=== PATIENT | male | born 1940 | race Caucasian/White ===

== ENCOUNTER 2016-08-23 14:41 | Inpatient (IN) | payer MEDICARE, OTHER ==
--- NOTE | ~2016-08-23 | HP ---
History And Physical [address] [address] NAME: PATRICIA MILLER : 40 STATUS : ADM IN [facility]#: [id number] AGE: 76 ADM/REG DATE : 08/23/16 MR#: [id number] REPORT SERV DATE: 08/24/16 DICTATED BY: MEG MANSFIELD DATE: 08/23/16 REPORT STATUS : Draft TRANSCRIBED BY: MODAna Luisa DATE: 08/23/16 DATE OF ADMISSION: 08/23/2016 CHIEF COMPLAINT: This is a 76-year-old white male, triaged in the emergency room today, 08/23/2016 at 1440 hours, brought by family because of fall and weakness. His ER evaluation included a chest x-ray, which was positive for left lower lobe pneumonia. The Hospitalist Service was consulted, and the patient is now seen by the undersigned and admitted. The history is obtained from the patient's and from the patient's daughter. The patient is not able to give any historical information. 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 He fell into a tub. He had a head injury. He was taken to [place] and was evaluated in the emergency room and then admitted to the hospital for five days. According to the family, he had two CT scans and one MRI scan of his brain, and he did not have a stroke. He was found to be dehydrated and had a low potassium, and this was corrected by the time of discharge. Of note is that family said his status declined in the hospital where he was unable to sit, walk, talk, or respond as he had prior to his fall. Discussions were had then regarding rehab, but the family thought that if they could get him home and in his home environment, he might thrive. Of note, he did develop a cough in hospital. He was brought back to the hospital today because of a declining mental status and inability to sit, walk , talk, or respond. In addition, he has had a cough. There has not been any complaints of pain. No nausea or vomiting. No abdominal pain. No evident mucosal bleeding. SIGNIFICANT MEDICAL HISTORY: 1. Dementia for jrds-kxt-y-half years with behavioral disorder followed by Dr. Forrester, on Namenda, Exelon, and Seroquel. 2. Recent diagnosis of Parkinson disease, on Sinemet. 3. Type 2 diabetes, on Levemir and metformin. 4. Voiding dysfunction, on Flomax. 5. Hyperlipoproteinemia. There is no history of cancer, venous thromboembolic disease, COPD, or pulmonary fibrosis. There is no history of myocardial infarction or congestive heart failure. No previous history of stroke or seizure disorder. No previous rheumatologic diseases. PAST SURGICAL HISTORY: Lithotripsy for renal stones. ALLERGIES OR INTOLERANCE: Latex and morphine. HOME MEDICATIONS: Aspirin 81 mg daily, Sinemet 25/100 three times daily, vitamin D 50,000 units on Tuesdays, folic acid 1 mg daily, Levemir 30 units at bedtime, Namenda 10 mg twice daily, Fortamet 1000 mg twice daily, Centrum one tablet with lunch, Seroquel 50 mg at [address] [address] NAME: PATRICIA MILLER : 40 STATUS : ADM IN [facility]#: [id number] AGE: 76 ADM/REG DATE : 08/23/16 MR#: [id number] REPORT SERV DATE: 08/24/16 DICTATED BY: MEG MANSFIELD DATE: 08/23/16 REPORT STATUS : Draft TRANSCRIBED BY: MODL DATE: 08/23/16 bedtime, Exelon 6 mg twice daily, Crestor 20 mg at bedtime, Flomax 0.4 mg with lunch. 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 Until his fall, he was active. He was walking. and patient would visit children and grandchildren. No tobacco or alcohol use. Three healthy children. FAMILY HISTORY: No dementia. Positive for cancer and heart disease. REVIEW OF SYSTEMS: Cannot be obtained from the patient. Only other notable symptom from family is weight loss. PHYSICAL EXAMINATION: VITAL SIGNS: Admission blood pressure of 129/84, temperature 98.5, pulse 84, respirations 22, O2 saturation 97%. GENERAL: This is a stated age appearing acutely on chronically ill white male, examined in room 12. He is awake, but minimally interactive. He is basically nonverbal. SKIN: Warm and dry. No rash, petechiae, or ecchymoses. NODES: No palpable axillary, cervical or inguinal. HEENT: Atraumatic with symmetric facies. Lids, sclerae, and conjunctivae negative. No xanthelasma, scleral icterus, or conjunctival petechiae or injection. Pupils are equal, round, and reactive to light. Unable to test for extraocular movements. Hearing intact. Right ear negative. Right ear canal ceruminous, cannot see TM. Left ear negative, left ear canal and TM normal. Nose, negative. Anterior nares, clear. Lips, gums, mucosa, hard and soft palates, posterior pharynx, and tongue remarkable for dry mucous membranes. NECK: Supple. No visible JVD or asymmetry. No palpable mass, goiter, or tenderness. Trachea midline. Nontender. CHEST: No deformities. Breasts, no gynecomastia. No tenderness to palpation of chest. LUNGS: Diminished breath sounds bilaterally. No audible adventitious sounds. Normal respiratory effort. HEART: PMI not palpable. Regular rate and rhythm. No audible murmur, gallop, rub, or click. Pulses 2+ and symmetric radial, carotid, femoral, and dorsalis pedis. ABDOMEN: Scaphoid. Bowel sounds present. Soft to palpation. Cannot feel liver, spleen, kidneys, or definite increased aortic pulsation. : Normal penis. Chambers catheter in place with clear yellow urine. Scrotum, no palpable masses. Testicles, not enlarged. BACK: No visible abnormalities. Extremities x4, diminished muscle mass, diminished fat mass. No synovitis, clubbing, or edema. NEUROLOGIC: Mental status, see above. Cranial nerves grossly normal. Deep tendon reflexes symmetric, brachioradialis, knee jerk and ankle jerk with downgoing toes. Motor, minimal movement of extremities. PSYCHIATRIC: Unable to evaluate. DATA: Sodium 143, potassium 4.4, chloride 107, CO2 of 18, BUN 25, creatinine 1.05, glucose 324, calcium 9.4. Total protein 6.6, albumin 3, globulin 3.6. Total bilirubin 0.6, alkaline phosphatase 73, ALT 50, AST 24. Ammonia is 20. White count 15.2, hemoglobin 14.5, platelets 194,000. Urinalysis positive for protein, ketones, 4 rbc, 1 wbc per high-power field. History And Physical [address] [address] NAME: PATRICIA MILLER : 40 STATUS : ADM IN [facility]#: [id number] AGE: 76 ADM/REG DATE : 08/23/16 MR#: [id number] REPORT SERV DATE: 08/24/16 DICTATED BY: MEG MANSFIELD DATE: 08/23/16 REPORT STATUS : Draft TRANSCRIBED BY: MODL DATE: 08/23/16 CT brain, diffuse cerebral involutional changes. Chronic microvascular ischemic changes. No acute hemorrhage or other acute intracranial pathology identified. Chest x-ray reviewed, left lower lobe infiltrate. EKG sinus rhythm. Nonspecific ST-segment changes. ASSESSMENT: This is a 76-year-old white male with: 1. Left lower lobe pneumonia, healthcare-associated pneumonia, probably aspiration. 2. Suspect oropharyngeal dysphagia. 3. Fall, on 08/17/2016, with subsequent functional decline. 4. Dementia. 5. Parkinson disease. 6. Uncontrolled diabetes with positive anion gap. 7. Voiding dysfunction. 8. Hyperlipidemia. 9. Abnormal EKG. 10.Weight loss. PLAN: Check additional laboratory studies to further evaluate presentation including blood gases, LDH, hemoglobin A1c, lactate, troponin, BNP, procalcitonin, urinary strep and Legionella antigens, and serum acetone. Give healthcare-associated pneumonia antimicrobial therapy with cefepime and vancomycin with pharmacy assistance in dosing. Crystalloid volume resuscitation with LR. Neurology consultation with Dr. Forrester for input on current status compared to baseline. Continue home medications except metformin at this time. Adjusting insulin if needed. Pending modified barium swallow study and speech therapy evaluation. Diet with nectar-thick liquids. PT/OT evaluation. DVT prophylaxis. Family would like full code. Destination post hospital will be SNF for rehab, discussed. Further diagnostic and therapeutic considerations pending above. History And Physical [address] [address] NAME: PATRICIA MILLER : 40 STATUS : ADM IN PAT#: [id number] AGE: 76 ADM/REG DATE : 08/23/16 MR#: [id number] REPORT SERV DATE: 08/24/16 DICTATED BY: MEG MANSFIELD DATE: 08/23/16 REPORT STATUS : Draft TRANSCRIBED BY: MODL DATE: 08/23/16 DD/MODL Meg Mansfield M.D. / [id number] CC: MD Miguel Robles M.D.
--- NOTE | ~2016-08-23 | CN ---
Consultation Report [facility] [address] [place]. [address] NAME: PATRICIA MILLER : 40 STATUS : ADM IN PAT#: [id number] AGE: 76 ADM/REG DATE : 08/23/16 MR#: [id number] REPORT SERV DATE: 08/24/16 DICTATED BY: DATE: REPORT STATUS : Draft TRANSCRIBED BY: MODL DATE: 08/24/16 NEUROLOGY CONSULTATION DATE OF CONSULTATION: 08/24/2016 REASON FOR CONSULT: Encephalopathy. HISTORY OF PRESENT ILLNESS: This is a 76-year-old male who presented to [facility] on 08/23/2016 secondary to patient almost in the comatose state with the patient being obtunded and stiff. The patient's family reports that patient has had recent fall on 08/17/2016, afterwards the patient was noted to have frequent falls, was noted to have deteriorating mental status to the point where the patient was obtunded, difficult to arouse, and was noted to be very stiff. The patient was brought to the emergency department where patient was diagnosed with pneumonia, started on antibiotic. Since the antibiotic initiation, the patient was noted to have more improved mental status with the patient being more alert. The patient today at some point was able to sing with grandchildren and was able to communicate with the family members with the patient apparently answer most questions appropriately which was improved from previous mental status. The patient's family reports the patient does have a history of memory difficulties with the patient diagnosed with Alzheimer's dementia, patient was noted to have memory difficulties especially with recent memory. The patient especially was noted at times to have delusional thought as well as agitation and behavior issue although no significant hallucination was reported. The patient recently was also diagnosed with Parkinson disease and was started on Sinemet. First, the patient sustained a fall on 08/17/2016. The patient fell backwards into the tub, possibly hitting his head. Also, no immediate loss consciousness episode resulted form that. The patient afterwards was noted to be drowsy and subsequently was transferred to [facility] for evaluation where the patient has had two CT scan as well as MRI of the brain performed without finding significant pathology or acute stroke. The patient was subsequently discharged and was noted to have more difficulty. As a result, the patient was brought back to the hospital for re-evaluation. No other changes in medication were noted. However, the patient was noted to have not been taking his Sinemet medication for the past week or so secondary to recent hospitalization as well as later obtundation state. The patient at home was not noted to have any recent fever, chill, nausea, vomiting, previous to the hospitalization. Prior to the hospitalization, no previous history of dysarthria or dysphagia was noted. The patient was previously noted to be able to ambulate. Also, the patient's ambulation status has deteriorated since recent fall. PAST MEDICAL HISTORY: The patient's past medical history is significant for Alzheimer's dementia as well as Parkinson disease on Sinemet, type 2 diabetes, and history of voiding dysfunction on Flomax. No significant worsening was reported by family members. No bowel difficulty was noted by family members. The patient was not noted to have any history of stroke or seizure. ALLERGIES: THE PATIENT WAS NOTED TO HAVE ALLERGY TO LASIX AND MORPHINE. Consultation Report [place] [id number] [facility] [place]. [address] NAME: PATRICIA MILLER : 40 STATUS : ADM IN [facility]#: [id number] AGE: 76 ADM/REG DATE : 08/23/16 MR#: [id number] REPORT SERV DATE: 08/24/16 DICTATED BY: DATE: REPORT STATUS : Draft TRANSCRIBED BY: MODL DATE: 08/24/16 HOME MEDICATIONS: Consist of aspirin, Sinemet, vitamin D, folic acid, Levemir, Namenda, metformin, multivitamin, Seroquel, Exelon, Crestor, and Flomax. SOCIAL HISTORY: Denies tobacco, alcohol, or recreational drug usage. FAMILY HISTORY: Significant for cancer and heart disease. REVIEW OF SYSTEMS: Unable to be obtained from the patient secondary to patient's current mental status. PHYSICAL EXAMINATION: VITAL SIGNS: At the time of evaluation, the patient was noted to have overnight vital signs with T-max of 99.7, heart rate of 66 to 105, respirations of 20 to 24, blood pressure of 95 to 185 over 50 to 85. GENERAL: The patient is well developed, well nourished, in no acute distress. CARDIOVASCULAR EXAMINATION: Regular rate and rhythm. No carotid bruits were otherwise auscultated. PULMONARY EXAMINATION: Clear to auscultation bilaterally. NEUROLOGICAL EXAMINATION: Generally, the patient is arousable, also difficulty to maintain aroused. The patient is oriented to self as well as person but not to place, year, or months. The patient does not follow simple and 2-step commands. Increased rigidity was noted in bilateral upper and lower extremity with some mild tremor observed. Grimace as well as withdrawal was noted to noxious stimulation in all four extremities. Deep tendon reflex was 3+ throughout. Gait and cerebellar examination was unable to be evaluated secondary to patient's current mental status. LABORATORY STUDIES: Demonstrated white blood cell count of 13.0, hemoglobin of 13.5, hematocrit of 42.1, platelet count of 193. Chemistry panel; sodium 145, potassium 3.5, chloride 112, bicarb of 12, BUN of 18, creatinine 0.42, glucose of 60, calcium of 8.6, magnesium 1.5. Serum TSH was 0.437. Urinalysis demonstrated negative leukocyte esterase, negative nitrite. CT scan of the brain was reviewed, generalized atrophy was seen. No acute process was noted. IMPRESSION: 1. Encephalopathy likely secondary to pneumonia and possibly have component of traumatic brain injury secondary to recent fall. Family does reports some improvement in mentation after antibiotic for pneumonia. We are recommending to restart patient's home p.o. dementia medication once the patient is able to tolerate p.o. diet. We are recommending swallow study secondary to concern for possible aspiration. 2. Gait abnormalities worse after recent falls. We will check MRI of the C-spine without contrast. PT, OT, orthostatic vitals when patient is more stable. Consultation Report [place] [id number] [facility] [place]. [address] NAME: PATRICIA MILLER : 40 STATUS : ADM IN [facility]#: [id number] AGE: 76 ADM/REG DATE : 08/23/16 MR#: [id number] REPORT SERV DATE: 08/24/16 DICTATED BY: DATE: REPORT STATUS : Draft TRANSCRIBED BY: MODL DATE: 08/24/16 3. Parkinson's disease. We are recommending restart Sinemet when patient is more alert and able to tolerate p.o. RECOMMENDATION: 1. MRI of the brain and C-spine without contrast. 2. PT/OT. 3. Restart Sinemet when patient is able to tolerate p.o. diet. 4. Speech therapy for swallow study. 5. Vitamin B12, folate, thiamine, and free T4 level. [facility]/MODL Bennie Chaidez MD / [id number] CC: MD Miguel Robles M.D.
--- NOTE | ~2016-08-23 | DS ---
Discharge Summary [facility] [address] [place]. [address] NAME: PATRICIA MILLER : 40 STATUS : DIS IN PAT#: [id number] AGE: 76 ADM/REG DATE : 08/23/16 MR#: [id number] REPORT SERV DATE: 08/31/16 DICTATED BY: MICHAEL ODOM DATE: 08/30/16 REPORT STATUS : Draft TRANSCRIBED BY: MODL DATE: 08/30/16 ADMISSION DATE: 08/23/2016 DISCHARGE DATE: 08/29/2016 REASON FOR ADMISSION: This is a 76-year-old male, who came in with chief complaint of fall and weakness. Apparently, the patient had had a fall on 08/17/2016. He fell into the bathtub and had a closed head injury. He was taken to [place] where he was admitted for five days. He had a series of CT scans and MRIs that were negative and he was discharged and took him home; however, when he got home, he was unable to sit up, walk, talk, respond, and inability to swallow. The patient was found to have left lower lobe infiltrate and thought to have probable aspiration pneumonia and suspected oropharyngeal dysphagia. Admitted with a functional decline since his recent hospitalization at [place]. DISCHARGE DIAGNOSES: 1. Aspiration pneumonia. 2. Dysphagia. 3. Dementia with acute encephalopathy. 4. Status post fall with closed head injury. 5. Diabetes type 2. 6. Parkinson disease. HOSPITAL COURSE: The patient was very lethargic and largely nonresponsive for the 1st part of his hospital stay. He finally was able to complete a swallowing study on the , which would show aspiration with thin and nectar thick consistencies. So they would recommend pureed diet with honey thick liquids. When I took over the patient on 08/26/2016, the patient was more awake and responsive. He was able to eat some that night and received his oral medications that evening. He took Seroquel, which he is on schedule for the first time in several days. Due to inability to swallow prior to that and the next morning, he was quite sedated and unable to eat or drink. The prior day, he had been started on sublingual carbidopa levodopa by Neurology and so he was able to receive his Parkinson's medications. He would end up receiving an MRI of the brain and C-spine that day which showed atrophy compatible with generalized atrophy and mid brain atrophy compatible with Parkinson's and MRI of C-spine which show spondylitic changes projecting in the left central and neuroforaminal canal at C6-C7. The following day, the patient began to awaken again after we held his nighttime Seroquel. He was able to take his p.o. medications. He was able to eat and drink and was able to stand up with PT. He sustained that success again on the and was felt to be stable for discharge. We arranged rehab for him at local alf facility and was discharged. DISCHARGE CONDITION: Stable. DISCHARGE MEDICATIONS: 1. Sinemet 25/100 one tab t.i.d. 2. Metformin 1000 mg b.i.d. 3. Seroquel 12.5 mg p.o. at bedtime. 4. Crestor 20 mg p.o. at bedtime. Discharge Summary [address] [address] NAME: PATRICIA MILLER : 40 STATUS : DIS IN PAT#: [id number] AGE: 76 ADM/REG DATE : 08/23/16 MR#: [id number] REPORT SERV DATE: 08/31/16 DICTATED BY: MICHAEL ODOM DATE: 08/30/16 REPORT STATUS : Draft TRANSCRIBED BY: RUBEN DATE: 08/30/16 5. Namenda 10 mg p.o. b.i.d. 6. Exelon 6 mg p.o. b.i.d. 7. Flomax 0.4 mg p.o. daily. 8. Folic acid 1 mg p.o. daily. 9. Vitamin D 50,000 units p.o. weekly. 10.Aspirin 81 mg p.o. daily. 11.Levemir 30 units at bedtime. 12.Multivitamin one tablet daily. DISCHARGE PLAN: The patient is discharged to rehab and follow up with primary care, Miguel Wise after rehab as well as Dr. Vera Forrester with Neurology after rehab. YENNY/RUBEN Michael Odom APN / [id number] CC: Sabina Minor M.D. Abdul M.W. Eletr, M.D.
--- NOTE | ~2016-08-23 | EEG ---
Electroencephalogram [facility] [address] [place]. [address] NAME: PATRICIA MILLER : 40 STATUS : ADM IN PAT#: [id number] AGE: 76 ADM/REG DATE : 08/23/16 MR#: [id number] REPORT SERV DATE: 08/25/16 DICTATED BY: DATE: REPORT STATUS : Draft TRANSCRIBED BY: MODL DATE: 08/25/16 CLINICAL INDICATIONS: Encephalopathy. DESCRIPTION: This EEG was performed using 10/20 electrode placement system. During the EEG study, generalized slowing was seen with predominant occipital rhythm of roughly 5 to 6 hertz. Photic stimulation was performed. No clear motor vehicle escort driver response was seen. Hyperventilation was not performed secondary to the patient's mental status and underlying medical conditions. The patient achieved drowsy as well as stage I and II sleep with appropriate sleep spindles and K-complexes. No focal abnormalities, seizure activity, or seizure discharge was otherwise noted. INTERPRETATION: This EEG study obtained during awake, drowsy as well as stage I and II sleep may be considered mildly abnormal secondary to presence of mild generalized slowing. Otherwise, no focal abnormalities, seizure activity, or seizure discharge was seen. Clinical correlation is recommended. [facility]/MODL Bennie Chaidez MD / [id number] CC: MD JOSE RAMON Robles RICHARD
[2016-08-23 15:34] LABS: BASOPHILS 0.2 %; BASOPHILS ABSOLUTE 0.03 10/3/uL (0.0-0.16); EOSINOPHILS 0.1 %; EOSINOPHILS ABSOLUTE 0.02 10/3/uL (0.0-0.53); ER CBC TAT 0 Hrs 08 Mins; HEMATOCRIT 43.7 % (40.0-51.0); HEMOGLOBIN 14.5 g/dL (13.6-17.8); IMMATURE GRANULOCYTES 0.5 %; IMMATURE GRANULOCYTES ABSOLUTE 0.07 10/3/uL (0.0-0.11); LYMPHOCYTES 7.3 %; MEAN CORPUS HGB CONC 33.2 g/dL (32.0-36.0); MEAN CORPUSCULAR HEMOGLOB 29.4 pg (26.0-34.0); MEAN CORPUSCULAR VOLUME 88.5 fL (80-100); MEAN PLATELET VOLUME 10.2 fL (9.2-13.0); MONOCYTES ABSOLUTE 1.21 10/3/uL (0.21-1.20); NEUTROPHILS 83.9 %; NEUTROPHILS ABSOLUTE 12.73 10/3/uL (2.02-8.40); PLATELET COUNT 194 10/3/uL (150-400); RBC DISTRIBUTION WIDTH 14.6 % (12.0-16.0); RED CELL COUNT 4.94 10/6/uL (4.7-6.1); WHITE BLOOD CELLS 15.2 10/3/uL (4.5-10.5)
[2016-08-23 15:35] LABS: MANUAL DIFF NO %
[2016-08-23 16:13] LABS: A/G RATIO 0.8 (0.7-1.9); ALKALINE PHOSPHATASE 73 U/L (45-117); BUN (BLOOD UREA NITROGEN) 25 MG/DL (6-23); CALCIUM, SERUM 9.4 MG/DL (8.5-10.4); CHLORIDE, SERUM 107 MMOL/L (96-112); CO2 (CARBON DIOXIDE) 18 MMOL/L (24-34); CREATININE 1.05 MG/DL (0.70-1.30); GFR AFRICAN AMERICAN 80 ML/MIN (>=60); GFR NON AFRICAN AMERICAN 69 ML/MIN (>=60); GLOBULIN 3.6 G/DL (2.5-4.1); GLUCOSE, SERUM 324 MG/DL (60-99); POTASSIUM, SERUM 4.4 MMOL/L (3.5-5.3); SGOT(AST) 24 U/L (5-40); SGPT(ALT) 50 U/L (5-65); SODIUM, SERUM 143 MMOL/L (135-148); TOTAL BILIRUBIN 0.6 MG/DL (0-1.2); TOTAL PROTEIN 6.6 G/DL (6.0-8.5)
[2016-08-23 16:21] LABS: ASCORBIC ACID (UR NOT ORDER) NEG (NEG); BILIRUBIN, URINE NEGATIVE (NEG); ER URINALYSIS TAT 0 Hrs 12 Mins; KETONE, URINE 80 MG/DL (NEG); LEUKOCYTE ESTERASE(NOT OR NEG (NEG); NITRITE (URINE) NEG (NEG); WBC (NOT ORDERED) (RFLEX) 1 (0-5)
[2016-08-23] MEDS ORDERED: SIN25 PO (17:24)
[2016-08-23] MEDS ORDERED: SEROQUEL50 MG PO (17:25)
[2016-08-23] MEDS ORDERED: FORTAMET1000 MG PO (17:25)
[2016-08-23] MEDS ORDERED: CRESTOR20 MG PO (17:25)
[2016-08-23] MEDS ORDERED: FLOMAX4 PO (17:26)
[2016-08-23] MEDS ORDERED: FOLIC PO (17:26)
[2016-08-23] MEDS ORDERED: NAMENDA10 MG PO (17:26)
[2016-08-23] MEDS ORDERED: EXELON3 PO (17:26)
[2016-08-23] MEDS ORDERED: VITD PO (17:27)
[2016-08-23] MEDS ORDERED: LEVEMFLXPN SC (17:28)
[2016-08-23] MEDS ORDERED: CENTRUM PO (17:28)
[2016-08-23] MEDS ORDERED: ASAB PO (17:28)
[2016-08-23 22:18] LABS: B NATRIURETIC PEPTIDE (BNP) 44.1 PG/ML (< 100.0)
[2016-08-23 23:24] LABS: TROPONIN I 0.02 NG/ML (<0.05)
[2016-08-23 23:37] LABS: ACETONE SMALL
[2016-08-24 00:07] LABS: PROCALCITONIN 0.38 ng/mL (<0.5)
[2016-08-24 07:03] LABS: BASOPHILS 0.4 %; BASOPHILS ABSOLUTE 0.05 10/3/uL (0.0-0.16); EOSINOPHILS 2.6 %; EOSINOPHILS ABSOLUTE 0.34 10/3/uL (0.0-0.53); HEMATOCRIT 42.1 % (40.0-51.0); HEMOGLOBIN 13.5 g/dL (13.6-17.8); IMMATURE GRANULOCYTES 0.5 %; IMMATURE GRANULOCYTES ABSOLUTE 0.06 10/3/uL (0.0-0.11); LYMPHOCYTES 7.6 %; LYMPHOCYTES ABSOLUTE 0.98 10/3/uL (0.67-4.30); MEAN CORPUS HGB CONC 32.1 g/dL (32.0-36.0); MEAN CORPUSCULAR HEMOGLOB 28.6 pg (26.0-34.0); MEAN CORPUSCULAR VOLUME 89.2 fL (80-100); MEAN PLATELET VOLUME 10.8 fL (9.2-13.0); MONOCYTES 13.2 %; MONOCYTES ABSOLUTE 1.71 10/3/uL (0.21-1.20); NEUTROPHILS 75.7 %; NEUTROPHILS ABSOLUTE 9.82 10/3/uL (2.02-8.40); PLATELET COUNT 193 10/3/uL (150-400); RBC DISTRIBUTION WIDTH 14.6 % (12.0-16.0); RED CELL COUNT 4.72 10/6/uL (4.7-6.1)
[2016-08-24 07:14] LABS: MANUAL DIFF NO %
[2016-08-24 09:04] LABS: CALCIUM, SERUM 8.6 MG/DL (8.5-10.4); CHLORIDE, SERUM 112 MMOL/L (96-112); CO2 (CARBON DIOXIDE) 21 MMOL/L (24-34); SODIUM, SERUM 145 MMOL/L (135-148)
[2016-08-24 09:05] LABS: CREATININE 0.42 MG/DL (0.70-1.30); GFR AFRICAN AMERICAN 131 ML/MIN (>=60); GFR NON AFRICAN AMERICAN 113 ML/MIN (>=60); GLUCOSE, SERUM 60 MG/DL (60-99); POTASSIUM, SERUM 3.5 MMOL/L (3.5-5.3)
[2016-08-24 09:12] LABS: BUN (BLOOD UREA NITROGEN) 18 MG/DL (6-23)
[2016-08-24 09:25] LABS: TROPONIN I 0.03 NG/ML (<0.05); ULTRASENSITIVE TSH 0.437 MCIU/ML (0.358-3.740)
[2016-08-24 14:15] LABS: ALLENS TEST Pos; BE (BASE EXCESS) -4.3 MEQ/L (0 +/- 2.5); CARBOXYHEMOGLOBIN 1.3 % (0-3); HCO3 (ACTUAL BICARBONATE) 18.7 MEQ/L (23-27); HEMOBLOGIN CONTENT 14.5 G/DL (14-18); INSTRUMENT SERIAL # 8087; METHEMOGLOBIN 0.3 % (0-3); O2 CONTENT 18.7 VOL% (18-24); PCO2 (CO2 TENSION) 30 MMHG (35-45); PO2 (O2 TENSION) 67 MMHG (79-93); SAMPLE Arterial; pH 7.42 (7.37-7.43)
[2016-08-24 20:30] LABS: GLYCOHEMOGLOBIN (HbA1c) 7.2 % (4.7-6.1)
[2016-08-25 06:21] LABS: BASOPHILS 0.5 %; BASOPHILS ABSOLUTE 0.05 10/3/uL (0.0-0.16); EOSINOPHILS 8.8 %; EOSINOPHILS ABSOLUTE 0.94 10/3/uL (0.0-0.53); HEMATOCRIT 38.7 % (40.0-51.0); HEMOGLOBIN 12.5 g/dL (13.6-17.8); IMMATURE GRANULOCYTES 0.5 %; IMMATURE GRANULOCYTES ABSOLUTE 0.05 10/3/uL (0.0-0.11); LYMPHOCYTES 10.2 %; LYMPHOCYTES ABSOLUTE 1.09 10/3/uL (0.67-4.30); MEAN CORPUS HGB CONC 32.3 g/dL (32.0-36.0); MEAN CORPUSCULAR HEMOGLOB 28.9 pg (26.0-34.0); MEAN CORPUSCULAR VOLUME 89.4 fL (80-100); MEAN PLATELET VOLUME 10.5 fL (9.2-13.0); MONOCYTES 12.1 %; MONOCYTES ABSOLUTE 1.29 10/3/uL (0.21-1.20); NEUTROPHILS 67.9 %; NEUTROPHILS ABSOLUTE 7.25 10/3/uL (2.02-8.40); PLATELET COUNT 212 10/3/uL (150-400); RBC DISTRIBUTION WIDTH 14.6 % (12.0-16.0); RED CELL COUNT 4.33 10/6/uL (4.7-6.1); WHITE BLOOD CELLS 10.7 10/3/uL (4.5-10.5)
[2016-08-25 06:29] LABS: MANUAL DIFF NO %
[2016-08-25 08:09] LABS: BUN (BLOOD UREA NITROGEN) 21 MG/DL (6-23); CHLORIDE, SERUM 113 MMOL/L (96-112); CREATININE 0.63 MG/DL (0.70-1.30); FREE T4 1.46 NG/DL (0.76-1.46); GFR AFRICAN AMERICAN 111 ML/MIN (>=60); GFR NON AFRICAN AMERICAN 96 ML/MIN (>=60); GLUCOSE, SERUM 72 MG/DL (60-99); POTASSIUM, SERUM 3.1 MMOL/L (3.5-5.3); SODIUM, SERUM 148 MMOL/L (135-148); TROPONIN I 0.02 NG/ML (<0.05)
[2016-08-25 08:11] LABS: CO2 (CARBON DIOXIDE) 27 MMOL/L (24-34); FOLATE 28.9 NG/ML (>5.2)
[2016-08-26 08:35] LABS: BASOPHILS 0.4 %; BASOPHILS ABSOLUTE 0.04 10/3/uL (0.0-0.16); EOSINOPHILS 6.1 %; EOSINOPHILS ABSOLUTE 0.61 10/3/uL (0.0-0.53); HEMATOCRIT 42.1 % (40.0-51.0); HEMOGLOBIN 13.8 g/dL (13.6-17.8); IMMATURE GRANULOCYTES 0.6 %; IMMATURE GRANULOCYTES ABSOLUTE 0.06 10/3/uL (0.0-0.11); LYMPHOCYTES ABSOLUTE 1.19 10/3/uL (0.67-4.30); MEAN CORPUS HGB CONC 32.8 g/dL (32.0-36.0); MEAN CORPUSCULAR HEMOGLOB 28.4 pg (26.0-34.0); MEAN PLATELET VOLUME 10.3 fL (9.2-13.0); MONOCYTES 11.5 %; MONOCYTES ABSOLUTE 1.14 10/3/uL (0.21-1.20); NEUTROPHILS 69.4 %; NEUTROPHILS ABSOLUTE 6.88 10/3/uL (2.02-8.40); PLATELET COUNT 254 10/3/uL (150-400); RBC DISTRIBUTION WIDTH 14.1 % (12.0-16.0); RED CELL COUNT 4.86 10/6/uL (4.7-6.1); WHITE BLOOD CELLS 9.9 10/3/uL (4.5-10.5)
[2016-08-26 08:37] LABS: MANUAL DIFF NO %; MEAN CORPUSCULAR VOLUME 86.6 fL (80-100)
[2016-08-26 08:40] LABS: CALCIUM, SERUM 8.7 MG/DL (8.5-10.4); CO2 (CARBON DIOXIDE) 27 MMOL/L (24-34); CREATININE 0.65 MG/DL (0.70-1.30); GFR AFRICAN AMERICAN 110 ML/MIN (>=60); GFR NON AFRICAN AMERICAN 95 ML/MIN (>=60)
[2016-08-26 08:41] LABS: BUN (BLOOD UREA NITROGEN) 10 MG/DL (6-23); CHLORIDE, SERUM 100 MMOL/L (96-112); GLUCOSE, SERUM 243 MG/DL (60-99); SODIUM, SERUM 141 MMOL/L (135-148)
[2016-08-26 18:09] LABS: C-REACTIVE PROTEIN 34.4 MG/L (<8.0); CHOL/HDL RATIO(NOT ORDER) 3.7 (0-5); DIRECT BILIRUBIN 0.2 MG/DL (0.0-0.4); FOLATE 35.7 NG/ML (>5.2); INDIRECT BILIRUBIN(NOT ORDER) 0.4 MG/DL (0.1-0.9); TOTAL BILIRUBIN 0.6 MG/DL (0-1.2); TOTAL PROTEIN 6.9 G/DL (6.0-8.5)
[2016-08-26 22:21] LABS: GLYCOHEMOGLOBIN (HbA1c) 7.4 % (4.7-6.1)
[2016-08-27 07:13] LABS: BUN (BLOOD UREA NITROGEN) 9 MG/DL (6-23); CALCIUM, SERUM 8.9 MG/DL (8.5-10.4); CHLORIDE, SERUM 105 MMOL/L (96-112); CO2 (CARBON DIOXIDE) 27 MMOL/L (24-34); CREATININE 0.77 MG/DL (0.70-1.30); GFR AFRICAN AMERICAN 102 ML/MIN (>=60); GFR NON AFRICAN AMERICAN 88 ML/MIN (>=60); GLUCOSE, SERUM 242 MG/DL (60-99); POTASSIUM, SERUM 3.5 MMOL/L (3.5-5.3); SODIUM, SERUM 143 MMOL/L (135-148)
[2016-08-27 07:38] LABS: ASCORBIC ACID (UR NOT ORDER) NEG (NEG); BILIRUBIN, URINE NEGATIVE (NEG); KETONE, URINE TRACE MG/DL (NEG); LEUKOCYTE ESTERASE(NOT OR NEG (NEG); WBC (NOT ORDERED) (RFLEX) 2 (0-5)
[2016-08-27 09:07] LABS: ALLENS TEST Pos; BE (BASE EXCESS) 1.4 MEQ/L (0 +/- 2.5); CARBOXYHEMOGLOBIN 0.5 % (0-3); DEVICE NC; HCO3 (ACTUAL BICARBONATE) 25.5 MEQ/L (23-27); HEMOBLOGIN CONTENT 14.1 G/DL (14-18); INSTRUMENT SERIAL # 8083; METHEMOGLOBIN 0.1 % (0-3); OPERATOR ID 32214; PCO2 (CO2 TENSION) 39 MMHG (35-45); PO2 (O2 TENSION) 83 MMHG (79-93); SAMPLE Arterial; pH 7.44 (7.37-7.43)
[2016-08-27 10:29] LABS: PROCALCITONIN 0.05 ng/mL (<0.5)
[2016-08-28 05:49] LABS: BUN (BLOOD UREA NITROGEN) 6 MG/DL (6-23); CHLORIDE, SERUM 107 MMOL/L (96-112); CO2 (CARBON DIOXIDE) 28 MMOL/L (24-34); CREATININE 0.58 MG/DL (0.70-1.30); GFR AFRICAN AMERICAN 115 ML/MIN (>=60); GFR NON AFRICAN AMERICAN 99 ML/MIN (>=60); POTASSIUM, SERUM 3.1 MMOL/L (3.5-5.3); SODIUM, SERUM 143 MMOL/L (135-148)
[2016-08-28 05:53] LABS: GLUCOSE, SERUM 71 MG/DL (60-99)
[2016-08-28 06:01] LABS: BASOPHILS 0.5 %; BASOPHILS ABSOLUTE 0.06 10/3/uL (0.0-0.16); EOSINOPHILS 9.2 %; EOSINOPHILS ABSOLUTE 1.04 10/3/uL (0.0-0.53); HEMATOCRIT 41.1 % (40.0-51.0); HEMOGLOBIN 13.6 g/dL (13.6-17.8); IMMATURE GRANULOCYTES 1.6 %; IMMATURE GRANULOCYTES ABSOLUTE 0.18 10/3/uL (0.0-0.11); LYMPHOCYTES 13.9 %; LYMPHOCYTES ABSOLUTE 1.57 10/3/uL (0.67-4.30); MEAN CORPUS HGB CONC 33.1 g/dL (32.0-36.0); MEAN CORPUSCULAR HEMOGLOB 28.4 pg (26.0-34.0); MEAN CORPUSCULAR VOLUME 85.8 fL (80-100); MEAN PLATELET VOLUME 10.2 fL (9.2-13.0); MONOCYTES 4.3 %; MONOCYTES ABSOLUTE 0.48 10/3/uL (0.21-1.20); NEUTROPHILS 70.5 %; NEUTROPHILS ABSOLUTE 7.96 10/3/uL (2.02-8.40); PLATELET COUNT 263 10/3/uL (150-400); RBC DISTRIBUTION WIDTH 14.5 % (12.0-16.0); RED CELL COUNT 4.79 10/6/uL (4.7-6.1); WHITE BLOOD CELLS 11.3 10/3/uL (4.5-10.5)
[2016-08-28 06:13] LABS: MANUAL DIFF NO %
[2016-08-29 04:51] LABS: BUN (BLOOD UREA NITROGEN) 8 MG/DL (6-23); CALCIUM, SERUM 9.4 MG/DL (8.5-10.4); CHLORIDE, SERUM 102 MMOL/L (96-112); CREATININE 0.86 MG/DL (0.70-1.30); GFR AFRICAN AMERICAN 98 ML/MIN (>=60); GFR NON AFRICAN AMERICAN 84 ML/MIN (>=60); POTASSIUM, SERUM 3.2 MMOL/L (3.5-5.3); SODIUM, SERUM 144 MMOL/L (135-148)
[2016-08-29 05:00] LABS: CO2 (CARBON DIOXIDE) 33 MMOL/L (24-34); GLUCOSE, SERUM 122 MG/DL (60-99)
[2016-08-29 05:15] LABS: BASOPHILS 0.6 %; BASOPHILS ABSOLUTE 0.06 10/3/uL (0.0-0.16); EOSINOPHILS 8.8 %; EOSINOPHILS ABSOLUTE 0.92 10/3/uL (0.0-0.53); HEMOGLOBIN 14.8 g/dL (13.6-17.8); IMMATURE GRANULOCYTES 2.2 %; IMMATURE GRANULOCYTES ABSOLUTE 0.23 10/3/uL (0.0-0.11); LYMPHOCYTES 8.9 %; LYMPHOCYTES ABSOLUTE 0.93 10/3/uL (0.67-4.30); MEAN CORPUS HGB CONC 32.5 g/dL (32.0-36.0); MEAN CORPUSCULAR HEMOGLOB 29.1 pg (26.0-34.0); MEAN PLATELET VOLUME 10.5 fL (9.2-13.0); MONOCYTES 13.9 %; MONOCYTES ABSOLUTE 1.45 10/3/uL (0.21-1.20); NEUTROPHILS 65.6 %; NEUTROPHILS ABSOLUTE 6.82 10/3/uL (2.02-8.40); PLATELET COUNT 305 10/3/uL (150-400); RBC DISTRIBUTION WIDTH 14.1 % (12.0-16.0); RED CELL COUNT 5.09 10/6/uL (4.7-6.1); WHITE BLOOD CELLS 10.4 10/3/uL (4.5-10.5)
[2016-08-29 05:18] LABS: HEMATOCRIT 45.5 % (40.0-51.0)
[2016-08-29 05:19] LABS: MANUAL DIFF NO %; MEAN CORPUSCULAR VOLUME 89.4 fL (80-100)
== END 2016-08-29 16:10 | DRG 177 ==
LOC: ER 14:41 → 4SO 20:04
PROVIDERS: Internal Medicine; Nurse Practitioner; Nurse Practitioner Gerontology; Physician Assistant
DX: J69.0 Pneumonitis due to inhalation of food and vomit (principal); G93.49 Other encephalopathy; E87.0 Hyperosmolality and hypernatremia; G30.9 Alzheimer's disease, unspecified; F05 Delirium due to known physiological condition; R13.12 Dysphagia, oropharyngeal phase; I48.0 Paroxysmal atrial fibrillation; F02.81 Dementia in other diseases classified elsewhere, unspecified severity, with behavioral disturbance; E11.65 Type 2 diabetes mellitus with hyperglycemia; G20 Parkinson's disease; Z23 Encounter for immunization; R30.0 Dysuria; Z79.4 Long term (current) use of insulin; Z79.84 Long term (current) use of oral hypoglycemic drugs; E78.5 Hyperlipidemia, unspecified; Z88.5 Allergy status to narcotic agent; Z91.040 Latex allergy status; Z91.81 History of falling; Z79.82 Long term (current) use of aspirin; S06.9X0D Unspecified intracranial injury without loss of consciousness, subsequent encounter; W18.2XXD Fall in (into) shower or empty bathtub, subsequent encounter; E87.6 Hypokalemia; D64.9 Anemia, unspecified; R63.4 Abnormal weight loss; R31.9 Hematuria, unspecified; Z68.21 Body mass index [BMI] 21.0-21.9, adult
CPT/HCPCS: 36600; 70450; 70551; 71010; 72141; 74230; 80048; 80053; 80061; 80076; 80202; 81001; 82009; 82140; 82306; 82533; 82607; 82746; 82805; 82962; 83036; 83605; 83615; 83735; 83880; 84132; 84145; 84425; 84439; 84443; 84484; 85025; 85652; 86140; 90662; 92610-GN; 92611-GN; 93005; 94640; 95819; 97110-GO; 97110-GP; 97162-GP; 97166-GO; 97530-GP; 99285; A9270-GY; C8929; G0008; G8978-CL-GP; G8979-CK-GP; G8987-CL-GO; G8988-CK-GO; G8996-CK-GN; G8996-CN-GN; G8997-CK-GN; G8997-CN-GN; G8998-CK-GN; G8998-CN-GN; J0360; J0456; J0692; J2550; J3370; J3411; Q9957

== ENCOUNTER 2016-11-21 11:01 | Emergency (ER) | payer MEDICARE, OTHER ==
[2016-11-21 10:23] LABS: ASCORBIC ACID (UR NOT ORDER) NEG (NEG); BILIRUBIN, URINE NEGATIVE (NEG); ER URINALYSIS TAT 0 Hrs 07 Mins; KETONE, URINE NEGATIVE (NEG); LEUKOCYTE ESTERASE(NOT OR NEG (NEG); NITRITE (URINE) NEG (NEG); WBC (NOT ORDERED) (RFLEX) < 1 (0-5)
[2016-11-21 10:24] LABS: BASOPHILS 0.5 %; BASOPHILS ABSOLUTE 0.04 10/3/uL (0.0-0.16); EOSINOPHILS 7.8 %; EOSINOPHILS ABSOLUTE 0.62 10/3/uL (0.0-0.53); ER CBC TAT 0 Hrs 08 Mins; HEMATOCRIT 44.6 % (40.0-51.0); HEMOGLOBIN 14.5 g/dL (13.6-17.8); IMMATURE GRANULOCYTES 0.3 %; IMMATURE GRANULOCYTES ABSOLUTE 0.02 10/3/uL (0.0-0.11); LYMPHOCYTES 13.5 %; LYMPHOCYTES ABSOLUTE 1.07 10/3/uL (0.67-4.30); MANUAL DIFF NO %; MEAN CORPUS HGB CONC 32.5 g/dL (32.0-36.0); MEAN CORPUSCULAR HEMOGLOB 29.5 pg (26.0-34.0); MEAN CORPUSCULAR VOLUME 90.7 fL (80-100); MEAN PLATELET VOLUME 10.4 fL (9.2-13.0); MONOCYTES 11.6 %; MONOCYTES ABSOLUTE 0.92 10/3/uL (0.21-1.20); NEUTROPHILS 66.3 %; NEUTROPHILS ABSOLUTE 5.28 10/3/uL (2.02-8.40); PLATELET COUNT 206 10/3/uL (150-400); RBC DISTRIBUTION WIDTH 15.1 % (12.0-16.0); RED CELL COUNT 4.92 10/6/uL (4.7-6.1)
[2016-11-21 10:32] LABS: INTERNATIONAL NORMAL RATI 1.1 UNITS (-); PARTIAL THROMBO TIME 28.3 SEC (22.5-37.2); PROTIME (NOT ORD) 14.3 SEC (12.0-14.5)
[2016-11-21 10:43] LABS: CALCIUM, SERUM 8.8 MG/DL (8.5-10.4); CHLORIDE, SERUM 109 MMOL/L (96-112); CREATININE 0.89 MG/DL (0.70-1.30); GFR AFRICAN AMERICAN 96 ML/MIN (>=60); GFR NON AFRICAN AMERICAN 83 ML/MIN (>=60); SGOT(AST) 16 U/L (5-40); SGPT(ALT) 22 U/L (5-65); SODIUM, SERUM 145 MMOL/L (135-148); TROPONIN I <0.02 NG/ML (<0.05)
[2016-11-21 10:44] LABS: A/G RATIO 1.4 (0.7-1.9); ALBUMIN 4.1 G/DL (3.5-5.0); ALKALINE PHOSPHATASE 70 U/L (45-117); BUN (BLOOD UREA NITROGEN) 15 MG/DL (6-23); CO2 (CARBON DIOXIDE) 32 MMOL/L (24-34); GLOBULIN 2.9 G/DL (2.5-4.1); GLUCOSE, SERUM 71 MG/DL (60-99); TOTAL BILIRUBIN 1.6 MG/DL (0-1.2)
[~2016-11-21 11:01] MED LIST: ASAB PO; CENTRUM PO; CRESTOR20 MG PO; EXELON3 PO; FLOMAX4 PO; FOLIC PO; FORTAMET1000 MG PO; LEVEMFLXPN SC; NAMENDA10 MG PO; SEROQUEL50 MG PO; SIN25 PO; VITD PO
== END 2016-11-21 14:14 | disposition home or self-care (01) ==
LOC: ER 11:01
PROVIDERS: Nurse Practitioner
DX: G20 Parkinson's disease (principal); F02.80 Dementia in other diseases classified elsewhere, unspecified severity, without behavioral disturbance, psychotic disturbance, mood disturbance, and anxiety; E87.6 Hypokalemia; R45.1 Restlessness and agitation; E11.9 Type 2 diabetes mellitus without complications; Z88.5 Allergy status to narcotic agent; Z79.84 Long term (current) use of oral hypoglycemic drugs; Z79.82 Long term (current) use of aspirin; Z79.899 Other long term (current) drug therapy; Z79.4 Long term (current) use of insulin
CPT/HCPCS: 70450; 71010; 80053; 81001; 82140; 84484; 85025; 85610; 85730; 93005; 96365; 96375; 99285

== ENCOUNTER 2016-11-28 17:23 | Inpatient (IN) | payer MEDICARE, OTHER ==
--- NOTE | ~2016-11-28 | DS ---
Discharge Summary [facility] [address] [place]. [address] NAME: PATRICIA MILLER : 40 STATUS : DIS IN PAT#: [id number] AGE: 76 ADM/REG DATE : 11/28/16 MR#: [id number] REPORT SERV DATE: 12/04/16 DICTATED BY: MICHAEL ODOM DATE: 12/03/16 REPORT STATUS : Draft TRANSCRIBED BY: MODL DATE: 12/03/16 ADMISSION DATE: 11/28/2016 DISCHARGE DATE: 12/03/2016 REASON FOR ADMISSION: This is a 76-year-old male with a history of Parkinson's and Alzheimer's progressive dementia who came in with encephalopathy and sedation. The patient had recently been increased on his Seroquel from 50 mg to 100 mg daily. DISCHARGE DIAGNOSES: 1. Severe senile dementia with altered mental status and sedation secondary to medications. 2. Parkinson's. 3. Diabetes type 2, A1c 7.1%. 4. Hypertension. 5. Moderate dysphagia. 6. Hypokalemia. HOSPITAL COURSE: Severe senile dementia with altered mental status and sedation. The patient had recently had his Seroquel increased from 50 to 100 mg and had become severely sedated and borderline unresponsive after the dosage change. His dosage was cut back to 25 mg a day here at the hospital and over several days, the patient did have improvement with his mental status with the dosage changes. On admission, the patient had a MRI of the brain, which showed no acute intracranial abnormality seen and also had a CT of the brain which showed stable cerebral atrophy, no acute intracranial process identified. Also, chest x-ray was clear. The patient's white blood cell count was mildly elevated at 11.9, but procalcitonin was only 0.07. The patient did not have any fevers and his urinalysis did not reveal any evidence of a UTI. Again, the patient's symptoms improved with Seroquel dosage change. Moderate dysphagia. There were concerns about patient's swallowing. The patient had a modified barium swallow study which revealed moderate dysphagia with recommendations for mechanical soft diet, ground meats with gravy, nectar thick liquids, and esophageal stimulation at shelter rehab. DISCHARGE CONDITION: Stable. DISCHARGE MEDICATION: 1. Crestor 20 mg p.o. at bedtime. 2. Folic acid 1 mg p.o. daily. 3. Aspirin 81 mg p.o. daily. 4. Potassium chloride 20 mEq p.o. b.i.d. 5. Metformin 1000 mg p.o. b.i.d. 6. Flomax 0.4 mg p.o. daily. 7. Sinemet 25/100, one tab t.i.d. 8. Namenda 10 mg p.o. b.i.d. 9. Exelon 6 mg p.o. b.i.d. 10.Vitamin D 50,000 units p.o. weekly. Discharge Summary [address] [place]. [address] NAME: PATRICIA MILLER : 40 STATUS : DIS IN PAT#: [id number] AGE: 76 ADM/REG DATE : 11/28/16 MR#: [id number] REPORT SERV DATE: 12/04/16 DICTATED BY: MICHAEL ODOM DATE: 12/03/16 REPORT STATUS : Draft TRANSCRIBED BY: RUBEN DATE: 12/03/16 11.Ativan 0.5-1 mg b.i.d. p.r.n. 12.Levemir 30 units subcu at bedtime. 13.Seroquel 25 mg p.o. at bedtime. 14.Multivitamin one tablet daily. 15.Lisinopril 5 mg p.o. daily. DISCHARGE PLAN: Patient had PT evaluation which revealed his need for shelter rehab. He is arranged for that to [facility] and patient is scheduled to discharge there today. After rehab, the patient will follow up with primary care, Miguel Wise and his neurologist. DICTATED BY: SAVANNHA Phelan/RUBEN Michael Odom APN / [id number] CC: Sabina Minor M.D.
--- NOTE | ~2016-11-28 | CN ---
Consultation Report [facility] [address] [place]. [address] NAME: PATRICIA MILLER : 40 STATUS : ADM IN PAT#: [id number] AGE: 76 ADM/REG DATE : 11/28/16 MR#: [id number] REPORT SERV DATE: 11/29/16 DICTATED BY: DATE: REPORT STATUS : Draft TRANSCRIBED BY: MODL DATE: 11/29/16 NEUROLOGY CONSULTATION DATE OF CONSULTATION: 11/29/2016 REASON FOR CONSULT: Encephalopathy. HISTORY OF PRESENT ILLNESS: This is a 76-year-old male who presented to [facility] on 11/28/2016, secondary to about 1 week duration of encephalopathy with the patient noted to have 1 week duration of difficulty arousal as well as increased appetite and decreased activity. The patient, about 10 days ago, was noted to have adjustment of Seroquel with increased dosage to 250 mg p.o. at bedtime. The patient, about 7 days ago, was noted to be encephalopathic, difficulty to arouse as well as noted to have decreased p.o. intake. The patient, roughly two to three days prior to hospital admission, was noted to be sunken in the bed and slipped out of the bed. Family was unable to get him back into the bed. As a result, the family allowed the patient to be sleeping on the floor. The patient was noted to have minimal ambulatory activities during that period. The patient's son otherwise reports that since the hospital admission, roughly July 2016, the patient has been at rehab and has been doing relatively well with stable mentation, and the patient is able to ambulate short distances. The patient, however, seems to be doing worse over the past week and no recent fever, chills, nausea, vomiting, chest pain, or shortness of breath, was otherwise noted or reported by the patient. The patient's son denies any other changes in medication other than Seroquel. The patient's Seroquel has been discontinued by the patient's primary care physician secondary to patient's encephalopathy without significant improvement of the patient's mental status. The patient's son otherwise denies any recent worsening of weakness or any other noticeable focal complaints. The patient was diagnosed with dementia roughly 6 to 7 years ago and was noted to have fairly stable mentation until roughly June or July of 2016, for which the patient was initially presented to [place] for evaluation and subsequently presented to [facility] for re-evaluation. At that time, the patient was noted to have pneumonia. After pneumonia treatment, the patient was noted to have re-improvement of mental status and subsequently discharged to rehab for which the patient's mental status has been stable since until about a week ago. The patient was recently diagnosed with Parkinson's disease around June 2016 and then subsequently placed on Sinemet during the hospital admission in July 2016. No other changes in medication was otherwise reported. PAST MEDICAL HISTORY: Significant for history of dementia, Parkinson's disease, type 2 diabetes, as well as urinary dysfunction. SOCIAL HISTORY: Denies current tobacco, alcohol, or recreational drug usage. ALLERGIES: THE PATIENT WAS NOTED TO HAVE ALLERGY TO MORPHINE. HOME MEDICATIONS: Consist of aspirin, Sinemet, vitamin D, folic acid, Levemir, Ativan, Consultation Report [facility] [address] [place]. [address] NAME: PATRICIA MILLER : 40 STATUS : ADM IN [facility]#: [id number] AGE: 76 ADM/REG DATE : 11/28/16 MR#: [id number] REPORT SERV DATE: 11/29/16 DICTATED BY: DATE: REPORT STATUS : Draft TRANSCRIBED BY: MODL DATE: 11/29/16 Flomax, Crestor, Exelon, Seroquel which the patient has not been taking for the past couple of days; potassium; multivitamin; metformin; and Namenda. FAMILY HISTORY: Significant for cancer as well as heart disease. REVIEW OF SYSTEMS: Unable to be obtained secondary to the patient's current mental status. PHYSICAL EXAMINATION: VITAL SIGNS: At the time of evaluation, the patient was noted to have vital signs with T- max of 99.1, heart rate of 71 to 77, respirations of 14 to 20, and blood pressure of 140 to 194 over 64 to 84. GENERAL: The patient is well developed, well nourished, in no acute distress. CARDIOVASCULAR: Examination is regular rate and rhythm. No carotid bruits were otherwise auscultated. PULMONARY: Examination was clear to auscultation bilaterally. NEUROLOGICAL EXAMINATION: Generally the patient is obtunded, difficult to arouse, unable to maintain arousal. The patient was noted to have minimal verbalization and does not follow commands. Cranial nerves II through XII, pupil was difficult to assess as the patient was resisting eye opening, but otherwise appeared to be reactive horizontal eye movement was noted with the patient demonstrated [id number] response. Facial expression appeared to be symmetric. The patient does demonstrate increased muscle tones in bilateral upper extremities and trace myoclonic jerk was noted at time of evaluation, more pronounced in the left upper extremity, not appear sporadically, otherwise mild resting tremor was also seen in bilateral upper extremity, most pronounced in the left upper extremities and the patient does demonstrate grimace as well as trace withdrawal to noxious stimulation in all four extremities. Deep tendon reflex was hyperreflexic throughout. Cerebellar examination and gait was unable to be obtained secondary to the patient's current mental status. LABORATORY STUDIES: Demonstrated white blood cell count of 10.4, hemoglobin of 13.9, hematocrit of 42.4, and platelet count of 216. Chemistry panel: Sodium 142, potassium 3.7, chloride of 107, bicarb 27, BUN of 19, creatinine of 0.94, glucose of 196, calcium of 9.0, and magnesium 1.9. The patient noted to have serum ammonia level of less than 10, folate of 53.2, vitamin B12 of 453. TSH of 0.753, free T4 of 1.28, hemoglobin A1c of 7.1. Urine drug screen is otherwise negative with urinalysis demonstrated negative leukocyte esterase, negative nitrite. The patient was noted to have CT scan of the brain demonstrated no acute process with MRI of the brain demonstrated mild generalized atrophy but otherwise no acute process was seen. IMPRESSION: Encephalopathy. The patient on examination was noted to be obtunded, difficult to arouse, not following commands. The patient was also noted to have trace myoclonus in bilateral upper extremities, left greater than right as well as trace resting tremor, increased muscle rigidity. The patient does have a history of dementia for the past 6 to 7 years, appeared to be in steady course until July 2016, given known outstanding history of dementia, I feel less likely to be prion disease. We will check laboratory study. We Consultation Report [place] [id number] [facility] [place]. [address] NAME: PATRICIA MILLER : 40 STATUS : ADM IN PAT#: [id number] AGE: 76 ADM/REG DATE : 11/28/16 MR#: [id number] REPORT SERV DATE: 11/29/16 DICTATED BY: DATE: REPORT STATUS : Draft TRANSCRIBED BY: RUBEN DATE: 11/29/16 will be recommending to continue to hold Seroquel. Also discussed with the family regarding possible lumbar puncture. RECOMMENDATION: 1. Sedimentation rate, CRP, STIVEN, rheumatoid factor, procalcitonin level, thyroid antibodies with morning labs. 2. Discussed with the family members regarding possible lumbar puncture. 3. Continue to hold Seroquel. [facility]/MODL Bennie Chaidez MD / [id number] CC: Sabina Marie M.D.
--- NOTE | ~2016-11-28 | HP ---
History And Physical [place] [id number] [place]. [address] NAME: PATRICIA MILLER : 40 STATUS : ADM IN PAT#: [id number] AGE: 76 ADM/REG DATE : 11/28/16 MR#: [id number] REPORT SERV DATE: 11/29/16 DICTATED BY: FRANCHESCA ZABALA DATE: 11/28/16 REPORT STATUS : Draft TRANSCRIBED BY: MODL DATE: 11/28/16 DATE OF ADMISSION: 11/28/2016 Encephalopathy and unresponsiveness, progressive dementia. 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 He was treated for aspiration pneumonia and dementia with acute encephalopathy. He went to rehab where he spent 23 days. After that, he has been discharged home, and after discharge home, he reached his baseline which is pretty much confusion and periods of agitation that has been managed by Dr. Forrester. More than one week ago, the patient started again to experience periods of agitation and as a result, the patient's family called Dr. Forrester, who increased his Seroquel from 50 mg at bedtime to 100 mg at bedtime, according to the patient. He received Seroquel couple of days but he still has been extremely agitated, not sleeping. He has been brought to the emergency room. The family stopped his Seroquel. He recovered over the weekend last week and then he went to see his primary doctor who prescribed him some Ativan. They were giving him Ativan one dose, Ativan has been prescribed on since yesterday but mostly today he become more obtunded, largely very lethargic and unresponsive since this morning. Family says that this did happen the same during prior hospitalization. The patient has not been able to eat or drink over the last couple of days and since he has been extremely lethargic and largely unresponsive today they brought him to [facility]. The patient's family says that he did not complain of any chest pain or shortness of breath. He has not had any headaches, nausea, or vomiting. He has not had any falls recently but again due to the fact that he has significant deterioration of the mental status to the point that he became obtunded they brought him to [facility]. The patient has had significant according to the family progression of his dementia and recently, he has been diagnosed with Parkinson disease, and he has been started on Sinemet again. There were no reports at home for any fever, chills, nausea, vomiting, cough. No increased urinary frequency or urgency. No other complaints. The patient ambulatory status has been deteriorating recently due to his falls. After initial evaluation in the emergency room, Hospitalist Service has been asked for admission, further evaluation, and treatment. PAST MEDICAL HISTORY: Dementia, Parkinson disease, diabetes type 2, voiding dysfunction. PAST SURGICAL HISTORY: Include cataract surgery. SOCIAL HISTORY: Denies tobacco, alcohol, or IV drugs. ALLERGIES: HE IS ALLERGIC TO MORPHINE. MEDICATIONS: At home include aspirin, Sinemet, vitamin D, folic acid, Levemir, Ativan, Namenda, metformin, multivitamin, potassium, K-Dur, Seroquel, Exelon, Crestor, and Flomax. FAMILY HISTORY: Significant for cancer and heart disease. History And Physical [address] [address] NAME: PATRICIA MILLER : 40 STATUS : ADM IN [facility]#: [id number] AGE: 76 ADM/REG DATE : 11/28/16 MR#: [id number] REPORT SERV DATE: 11/29/16 DICTATED BY: FRANCHESCA ZABALA DATE: 11/28/16 REPORT STATUS : Draft TRANSCRIBED BY: RUBEN DATE: 11/28/16 REVIEW OF SYSTEMS: Review of systems has been unable to obtain due to the patient mental status. OBJECTIVE: VITAL SIGNS: Currently, the patient is afebrile. Blood pressure 140/74, heart rate 88, respiratory rate 10, saturating 99% on room air. GENERAL: He is a chronically ill-appearing gentleman, generally arousable though very difficult to maintain him aroused. He is alert and oriented x0. He does not follow any commands. There increased rigidity noted in the bilateral upper and lower extremities and tremor has been noted in all his extremities. Deep tendon reflexes are +2 throughout. Gait and cerebellar exam could not be appreciated. HEENT: Shows pupils equal, round, reactive to light. Dry mucosa membrane. NECK: No JVD. No lymphadenopathy. No thyromegaly appreciated. CHEST: Eval shows bilateral air entry. Clear anteroposterior. No wheezes, crackles, or rhonchi appreciated. CARDIOVASCULAR: Regular rate and rhythm. S1, S2 positive. No S3, no S4. No murmurs, rubs, or gallops appreciated. ABDOMEN: Soft with positive bowel sounds. Nontender. No guarding. No rebound. EXTREMITIES: No clubbing, cyanosis, or edema. NEUROLOGY: The patient is arousable but it is very difficult to arouse him. He is alert and oriented x0. He does not follow any commands. There is increased rigidity noted in bilateral upper and lower extremities. Gait and cerebellar examination could not be performed. LABORATORY DATA: Labs from today include ABG 7.46/29/. His sodium is 137, potassium 3.9, chloride 102, CO2 of 22, BUN 20, creatinine 1.27. Glucose is 341. His liver function tests showed total bilirubin 0.9, alkaline phosphatase 77, ALT 24, AST is 27. Serum drug level has been negative. His white count is 11.9, hemoglobin is 14.8, hematocrit 45.5, and platelets are 222. His INR is 1.1. His UA has been performed in the emergency room, it has been negative except for large blood. His UDS has been negative. His blood cultures are currently pending. There is a chest x-ray portable, performed in the emergency room, who does not show any acute cardiopulmonary abnormalities. Repeat CT scan of the brain without contrast has shown no acute intracranial abnormalities that could be appreciated. ASSESSMENT AND PLAN: This is a very pleasant 76-year-old gentleman with: 1. Encephalopathy in a patient with a history of progressive worsening dementia. 2. History of Parkinson disease. 3. Gait abnormalities with falls. 4. History of diabetes type 2, uncontrolled. 5. History of aspiration pneumonia with dysphagia. PLAN: 1. The patient is going to be admitted to Hospitalist Service. We are going to place him on oxygen, vigorous IV hydration. We are going to order an MRI of the brain, restart his home medications when able to swallow. We are going to restart the patient's p.o. History And Physical [address] [address] NAME: PATRICIA MILLER : 40 STATUS : ADM IN PAT#: [id number] AGE: 76 ADM/REG DATE : 11/28/16 MR#: [id number] REPORT SERV DATE: 11/29/16 DICTATED BY: FRANCHESCA ZABALA DATE: 11/28/16 REPORT STATUS : Draft TRANSCRIBED BY: RUBEN DATE: 11/28/16 dementia medication and Parkinson medications when he is able to tolerate p.o. and more awake. We are going to provide Geodon p.r.n. for severe agitation, and recommend a speech and swallow eval and treat when patient is more alert. We are going to consult Dr. Chaidez from Neurology Service for further recommendation. 2. Diabetes type 2, uncontrolled. While n.p.o. patient, we will check Accu-Cheks q.6 hours and sliding scale insulin subcutaneously level 2. We are going to check vitamin B12, folic acid, thiamine, TSH and a free T4. I have discussed extensively with the patient's who is power of college specialist, patient medical condition as well as our therapeutical goal. We have also discussed the patient's wishes in case his condition deteriorates, and she said she does not want any aggressive measures. She does not want any aggressive measures such as the intubation, chest compression, mechanical ventilation, defibrillation, cardioversion, or medication to treat life-threatening arrhythmia or hemodynamic deterioration according to patient's prior wishes well stated. We will honor patient and family wishes and make him do not resuscitate. Further workup and recommendation pending above. It is worthwhile to note that patient is going to be followed up by Hospitalist Service. [facility]/RUBEN Franchesca Zabala M.D. / [id number] CC: Sabina Marie M.D.
[2016-11-28 17:32] LABS: WBC (NOT ORDERED) (RFLEX) 0 (0-5)
[2016-11-28 17:35] LABS: BASOPHILS 0.2 %; BASOPHILS ABSOLUTE 0.02 10/3/uL (0.0-0.16); EOSINOPHILS 0.1 %; EOSINOPHILS ABSOLUTE 0.01 10/3/uL (0.0-0.53); HEMATOCRIT 45.5 % (40.0-51.0); HEMOGLOBIN 14.8 g/dL (13.6-17.8); IMMATURE GRANULOCYTES 0.3 %; IMMATURE GRANULOCYTES ABSOLUTE 0.04 10/3/uL (0.0-0.11); LYMPHOCYTES 6.2 %; LYMPHOCYTES ABSOLUTE 0.74 10/3/uL (0.67-4.30); MEAN CORPUS HGB CONC 32.5 g/dL (32.0-36.0); MEAN CORPUSCULAR HEMOGLOB 28.8 pg (26.0-34.0); MEAN CORPUSCULAR VOLUME 88.7 fL (80-100); MEAN PLATELET VOLUME 10.7 fL (9.2-13.0); MONOCYTES 8.5 %; MONOCYTES ABSOLUTE 1.01 10/3/uL (0.21-1.20); NEUTROPHILS 84.7 %; NEUTROPHILS ABSOLUTE 10.05 10/3/uL (2.02-8.40); PLATELET COUNT 222 10/3/uL (150-400); RBC DISTRIBUTION WIDTH 14.8 % (12.0-16.0); RED CELL COUNT 5.13 10/6/uL (4.7-6.1)
[2016-11-28 17:36] LABS: ER CBC TAT 0 Hrs 09 Mins; MANUAL DIFF NO %; WHITE BLOOD CELLS 11.9 10/3/uL (4.5-10.5)
[2016-11-28 17:48] LABS: ASCORBIC ACID (UR NOT ORDER) NEG (NEG); BILIRUBIN, URINE NEGATIVE (NEG); ER URINALYSIS TAT 0 Hrs 18 Mins; KETONE, URINE 80 MG/DL (NEG); LEUKOCYTE ESTERASE(NOT OR NEG (NEG); NITRITE (URINE) NEG (NEG)
[2016-11-28 17:57] LABS: A/G RATIO 1.1 (0.7-1.9); ACETAMINOPHEN LEVEL (TYLENOL) < 2.0 MCG/ML (10.0-20.0); ALBUMIN 3.7 G/DL (3.5-5.0); ALCOHOL < 10 MG/DL (0); ALKALINE PHOSPHATASE 77 U/L (45-117); BUN (BLOOD UREA NITROGEN) 20 MG/DL (6-23); CALCIUM, SERUM 9.3 MG/DL (8.5-10.4); CHLORIDE, SERUM 100 MMOL/L (96-112); CO2 (CARBON DIOXIDE) 22 MMOL/L (24-34); CREATININE 1.27 MG/DL (0.70-1.30); GFR AFRICAN AMERICAN 63 ML/MIN (>=60); GFR NON AFRICAN AMERICAN 55 ML/MIN (>=60); GLOBULIN 3.3 G/DL (2.5-4.1); GLUCOSE, SERUM 341 MG/DL (60-99); POTASSIUM, SERUM 3.9 MMOL/L (3.5-5.3); SALICYLATE < 1.7 MG/DL (-); SGOT(AST) 27 U/L (5-40); SGPT(ALT) 24 U/L (5-65); SODIUM, SERUM 137 MMOL/L (135-148); TOTAL BILIRUBIN 0.9 MG/DL (0-1.2)
[2016-11-28 18:59] LABS: AMPHETAMINES (NOT ORD) NEG (NEG); BARBITURATES (NOT ORDERED NEG (NEG); BENZODIAZEPINES (NOT ORD) NEG (NEG); CANNABINOIDS (THC) NEG (NEG); COCAINE (NOT ORDERED) NEG (NEG); OPIATES NEG (NEG); PHENCYCLIDINE(PCP) NEG (NEG); TRICYCLICS NEG (NEG)
[2016-11-28 19:36] LABS: ALLENS TEST Pos; BE (BASE EXCESS) -2.4 MEQ/L (0 +/- 2.5); CARBOXYHEMOGLOBIN 1.5 % (0-3); HCO3 (ACTUAL BICARBONATE) 20.1 MEQ/L (23-27); HEMOBLOGIN CONTENT 14.6 G/DL (14-18); INSTRUMENT SERIAL # 8087; METHEMOGLOBIN 0.3 % (0-3); O2 CONTENT 19.7 VOL% (18-24); OPERATOR ID 17589; PCO2 (CO2 TENSION) 29 MMHG (35-45); PO2 (O2 TENSION) 91 MMHG (79-93); SAMPLE Arterial; pH 7.46 (7.37-7.43)
[2016-11-28] MEDS ORDERED: CRESTOR20 MG PO (19:51)
[2016-11-28] MEDS ORDERED: FOLIC PO (19:51)
[2016-11-28] MEDS ORDERED: ASAB PO (19:51)
[2016-11-28] MEDS ORDERED: KDUR20 PO (19:52)
[2016-11-28] MEDS ORDERED: FORTAMET1000 MG PO (19:52)
[2016-11-28] MEDS ORDERED: NAMENDA10 MG PO (19:53)
[2016-11-28] MEDS ORDERED: FLOMAX4 PO (19:53)
[2016-11-28] MEDS ORDERED: SIN25 PO (19:53)
[2016-11-28] MEDS ORDERED: VITD PO (19:54)
[2016-11-28] MEDS ORDERED: EXELON3 PO (19:54)
[2016-11-28] MEDS ORDERED: ATV.5 PO (20:04)
[2016-11-28] MEDS ORDERED: LEVEMFLXPN SC ×2 (20:05)
[2016-11-28] MEDS ORDERED: CENTRUM PO (20:11)
[2016-11-28] MEDS ORDERED: SEROQUEL50 MG PO (20:11)
[2016-11-29 01:14] LABS: INTERNATIONAL NORMAL RATI 1.1 UNITS (-); PARTIAL THROMBO TIME 27.3 SEC (22.5-37.2)
[2016-11-29 01:21] LABS: AMMONIA < 10 UMOL/L (11-32)
[2016-11-29 01:28] LABS: B NATRIURETIC PEPTIDE (BNP) 71.8 PG/ML (< 100.0)
[2016-11-29 02:03] LABS: FREE T4 1.28 NG/DL (0.76-1.46); PHOSPHORUS, SERUM 2.7 MG/DL (2.5-4.5)
[2016-11-29 02:04] LABS: ACETAMINOPHEN LEVEL (TYLENOL) < 2.0 MCG/ML (10.0-20.0); ALCOHOL < 10 MG/DL (0); FOLATE 53.2 NG/ML (>5.2); SALICYLATE < 1.7 MG/DL (-); TROPONIN I 0.06 NG/ML (<0.05); ULTRASENSITIVE TSH 0.753 MCIU/ML (0.358-3.740)
[2016-11-29 05:01] LABS: BASOPHILS 0.4 %; BASOPHILS ABSOLUTE 0.04 10/3/uL (0.0-0.16); EOSINOPHILS 3.1 %; EOSINOPHILS ABSOLUTE 0.32 10/3/uL (0.0-0.53); HEMATOCRIT 42.4 % (40.0-51.0); HEMOGLOBIN 13.9 g/dL (13.6-17.8); IMMATURE GRANULOCYTES 0.4 %; IMMATURE GRANULOCYTES ABSOLUTE 0.04 10/3/uL (0.0-0.11); LYMPHOCYTES ABSOLUTE 1.45 10/3/uL (0.67-4.30); MEAN CORPUS HGB CONC 32.8 g/dL (32.0-36.0); MEAN CORPUSCULAR VOLUME 88.3 fL (80-100); MEAN PLATELET VOLUME 10.7 fL (9.2-13.0); MONOCYTES 11.1 %; MONOCYTES ABSOLUTE 1.15 10/3/uL (0.21-1.20); NEUTROPHILS ABSOLUTE 7.39 10/3/uL (2.02-8.40); PLATELET COUNT 216 10/3/uL (150-400); RBC DISTRIBUTION WIDTH 14.8 % (12.0-16.0); WHITE BLOOD CELLS 10.4 10/3/uL (4.5-10.5)
[2016-11-29 05:07] LABS: MANUAL DIFF NO %
[2016-11-29 05:12] LABS: A/G RATIO 1.2 (0.7-1.9); ALBUMIN 3.4 G/DL (3.5-5.0); ALKALINE PHOSPHATASE 70 U/L (45-117); BUN (BLOOD UREA NITROGEN) 19 MG/DL (6-23); CHLORIDE, SERUM 107 MMOL/L (96-112); CREATININE 0.94 MG/DL (0.70-1.30); GFR AFRICAN AMERICAN 91 ML/MIN (>=60); GFR NON AFRICAN AMERICAN 78 ML/MIN (>=60); GLOBULIN 2.8 G/DL (2.5-4.1); POTASSIUM, SERUM 3.7 MMOL/L (3.5-5.3); SGOT(AST) 27 U/L (5-40); SGPT(ALT) 23 U/L (5-65); SODIUM, SERUM 142 MMOL/L (135-148); TOTAL BILIRUBIN 1.3 MG/DL (0-1.2); TOTAL PROTEIN 6.2 G/DL (6.0-8.5)
[2016-11-29 05:13] LABS: CO2 (CARBON DIOXIDE) 27 MMOL/L (24-34); GLUCOSE, SERUM 196 MG/DL (60-99)
[2016-11-29 07:18] LABS: GLYCOHEMOGLOBIN (HbA1c) 7.1 % (4.7-6.1)
[2016-11-30 04:56] LABS: C-REACTIVE PROTEIN 10.3 MG/L (<8.0)
[2016-11-30 04:57] LABS: RHEUMATOID FACTOR QUANT < 10 IU/ML (0-15)
[2016-11-30 06:21] LABS: PROCALCITONIN 0.07 ng/mL (<0.5)
[2016-11-30 19:08] LABS: BUN (BLOOD UREA NITROGEN) 12 MG/DL (6-23); CALCIUM, SERUM 9.1 MG/DL (8.5-10.4); CHLORIDE, SERUM 105 MMOL/L (96-112); CO2 (CARBON DIOXIDE) 27 MMOL/L (24-34); CREATININE 0.84 MG/DL (0.70-1.30); GFR AFRICAN AMERICAN 99 ML/MIN (>=60); GFR NON AFRICAN AMERICAN 85 ML/MIN (>=60); GLUCOSE, SERUM 278 MG/DL (60-99); POTASSIUM, SERUM 3.5 MMOL/L (3.5-5.3); SODIUM, SERUM 141 MMOL/L (135-148)
[2016-12-01 06:38] LABS: BUN (BLOOD UREA NITROGEN) 13 MG/DL (6-23); CHLORIDE, SERUM 109 MMOL/L (96-112); CO2 (CARBON DIOXIDE) 27 MMOL/L (24-34); CREATININE 0.72 MG/DL (0.70-1.30); GFR AFRICAN AMERICAN 105 ML/MIN (>=60); GFR NON AFRICAN AMERICAN 91 ML/MIN (>=60); POTASSIUM, SERUM 3.1 MMOL/L (3.5-5.3); SODIUM, SERUM 144 MMOL/L (135-148)
[2016-12-01 06:39] LABS: GLUCOSE, SERUM 186 MG/DL (60-99)
[2016-12-01 13:02] LABS: ANA PATTERN HOMOGENEOUS
[2016-12-01 21:18] LABS: RAPID PLASMA REAGIN POS (NEG)
[2016-12-01 22:31] LABS: THIAMINE >200 nmol/L (()); THIAMINE MONOPHOSPHATE 2.1 nmol/L (())
[2016-12-02 06:00] LABS: BASOPHILS 0.4 %; BASOPHILS ABSOLUTE 0.03 10/3/uL (0.0-0.16); EOSINOPHILS 9.4 %; EOSINOPHILS ABSOLUTE 0.67 10/3/uL (0.0-0.53); HEMATOCRIT 40.7 % (40.0-51.0); HEMOGLOBIN 13.4 g/dL (13.6-17.8); IMMATURE GRANULOCYTES 0.4 %; IMMATURE GRANULOCYTES ABSOLUTE 0.03 10/3/uL (0.0-0.11); LYMPHOCYTES ABSOLUTE 1.42 10/3/uL (0.67-4.30); MANUAL DIFF NO %; MEAN CORPUS HGB CONC 32.9 g/dL (32.0-36.0); MEAN CORPUSCULAR HEMOGLOB 28.9 pg (26.0-34.0); MEAN CORPUSCULAR VOLUME 87.9 fL (80-100); MEAN PLATELET VOLUME 10.7 fL (9.2-13.0); MONOCYTES ABSOLUTE 0.71 10/3/uL (0.21-1.20); NEUTROPHILS 59.8 %; NEUTROPHILS ABSOLUTE 4.23 10/3/uL (2.02-8.40); PLATELET COUNT 209 10/3/uL (150-400); RBC DISTRIBUTION WIDTH 14.7 % (12.0-16.0); RED CELL COUNT 4.63 10/6/uL (4.7-6.1); WHITE BLOOD CELLS 7.1 10/3/uL (4.5-10.5)
[2016-12-02 06:10] LABS: BUN (BLOOD UREA NITROGEN) 12 MG/DL (6-23); CALCIUM, SERUM 9.6 MG/DL (8.5-10.4); CHLORIDE, SERUM 104 MMOL/L (96-112); CO2 (CARBON DIOXIDE) 30 MMOL/L (24-34); GFR AFRICAN AMERICAN 101 ML/MIN (>=60); GFR NON AFRICAN AMERICAN 87 ML/MIN (>=60); GLUCOSE, SERUM 140 MG/DL (60-99); POTASSIUM, SERUM 2.8 MMOL/L (3.5-5.3); SODIUM, SERUM 141 MMOL/L (135-148)
[2016-12-02 20:03] LABS: THYROGLOBULIN AUTO ANTIBODY <0.9 IU/mL (0.0-4.0); THYROID PEROXIDASE AUTO AB 0.6 IU/mL (0.0-9.0)
[2016-12-03 07:09] LABS: BUN (BLOOD UREA NITROGEN) 13 MG/DL (6-23); CALCIUM, SERUM 9.4 MG/DL (8.5-10.4); CHLORIDE, SERUM 104 MMOL/L (96-112); CO2 (CARBON DIOXIDE) 30 MMOL/L (24-34); CREATININE 0.97 MG/DL (0.70-1.30); GFR AFRICAN AMERICAN 88 ML/MIN (>=60); GFR NON AFRICAN AMERICAN 76 ML/MIN (>=60); GLUCOSE, SERUM 189 MG/DL (60-99); POTASSIUM, SERUM 3.3 MMOL/L (3.5-5.3); SODIUM, SERUM 139 MMOL/L (135-148)
[2016-12-06 21:40] LABS: LYME BY PCR Not Detected (NOTDET)
[2016-12-08 14:29] LABS: SPECIMEN TYPE (SERUM OR CSF..) SERUM
== END 2016-12-03 16:47 | DRG 56 ==
LOC: ER 17:23 → 1SO 21:26
PROVIDERS: Emergency Medicine; Hospitalist; Internal Medicine; Nurse Practitioner; Nurse Practitioner Gerontology; Psychiatry & Neurology Neurology
DX: G30.9 Alzheimer's disease, unspecified (principal); G93.40 Encephalopathy, unspecified; F05 Delirium due to known physiological condition; E11.65 Type 2 diabetes mellitus with hyperglycemia; F02.80 Dementia in other diseases classified elsewhere, unspecified severity, without behavioral disturbance, psychotic disturbance, mood disturbance, and anxiety; G20 Parkinson's disease; Z66 Do not resuscitate; Z88.5 Allergy status to narcotic agent; Z88.2 Allergy status to sulfonamides; Z79.82 Long term (current) use of aspirin; Z79.84 Long term (current) use of oral hypoglycemic drugs; E87.6 Hypokalemia
CPT/HCPCS: 36600; 70450; 70551; 70551-52; 71010; 74230; 80048; 80053; 80305; 80307; 81001; 82140; 82607; 82746; 82805; 82962; 83036; 83615; 83735; 83880; 84100; 84145; 84425; 84439; 84443; 84484; 85025; 85610; 85652; 85730; 86039; 86140; 86256; 86376; 86431; 86592; 86593; 86780; 86800; 87040; 87389; 87476; 92610-GN; 92611-GN; 93005; 96374; 97116-GP; 97161-GP; 99285; A9270-GY; G8978-CK-GP; G8979-CJ-GP; G8996-CJ-GN; G8996-CK-GN; G8997-CJ-GN; G8997-CK-GN; G8998-CJ-GN; G8998-CK-GN; J3411; J3480; J3486